=== PATIENT | male | born 1980 | race Caucasian/White ===

== ENCOUNTER 2021-07-13 19:18 | Inpatient (IN) | payer MEDICARE, MEDICAID ==
[~2021-07-13] VITALS: Ht 180.3 cm; Wt 147.9 kg
[2021-07-14 02:09] VITALS: BP 139/96
[2021-07-14] MEDS ORDERED: HALOPERIDOL 5 MG TABLET PO PRN (05:15)
[2021-07-14] MEDS ORDERED: ALBUTEROL SULFATE HFA 90 MCG/PUFF 8 GM INHALER IH PRN ×2 (06:30→06:45)
[2021-07-14] MEDS ORDERED: TraMADol HCL 50 MG TABLET PO PRN (06:30)
[2021-07-14] MEDS ORDERED: DOCUSATE SODIUM 100 MG CAPSULE PO PRN (06:45)
[2021-07-14] MEDS ORDERED: MAGNESIUM HYDROXIDE SUSPENSION 30 ML UDCUP PO PRN (06:45)
[2021-07-14] MEDS ORDERED: LOPERAMIDE HCL 2 MG CAPSULE PO PRN (06:45)
[2021-07-14] MEDS ORDERED: MAG HYDROX/AL HYDROX/SIMETH ES 30 ML SUSPENSION UDCUP PO PRN (06:45)
[2021-07-14] MEDS ORDERED: ONDANSETRON HCL 4 MG TABLET PO PRN (06:45)
[2021-07-14] MEDS ORDERED: ACETAMINOPHEN 325 MG TABLET PO PRN (06:45)
[2021-07-14] MEDS ORDERED: CloNIDine HCL 0.1 MG TABLET PO PRN (06:45)
[2021-07-14] MEDS ORDERED: GuaiFENesin/D-METHORPHAN [SUGAR-FREE] 200-20MG/10 ML SYRUP UDCUP PO PRN (06:45)
[2021-07-14] MEDS ORDERED: PETROLATUM,WHITE 28 GM JELLY TP PRN (06:45)
[2021-07-14] MEDS: LEVOTHYROXINE SODIUM 75 MCG TABLET PO SCH (07:00)
[2021-07-14 09:15] VITALS: BP 144/86
[2021-07-14 16:10] VITALS: BP 138/82
[2021-07-14] MEDS ORDERED: PALIPERIDONE PALMITATE 234 MG/1.5 ML SYRINGE IM ONE (16:15)
[2021-07-14] MEDS: QUEtiapine FUMARATE 25 MG TABLET PO SCH (17:32)
[2021-07-15 02:06] VITALS: BP 144/77
[2021-07-15 03:41] VITALS: BP 144/81
[2021-07-15] MEDS: LORazepam 2 MG TABLET PO PRN (03:44)
[2021-07-15] MEDS: LEVOTHYROXINE SODIUM 75 MCG TABLET PO SCH (06:47)
[2021-07-15 08:11] VITALS: BP 139/80
[2021-07-15] MEDS: QUEtiapine FUMARATE 25 MG TABLET PO SCH ×2 (09:00→15:54)
[2021-07-15 09:01] LABS: BASOPHILS % (AUTO) 0.6 % (0.0-2.0); EOSINOPHILS % (AUTO) 3.1 % (1.0-6.0); HEMATOCRIT 44.9 % (41-53); HEMOGLOBIN 15.3 g/dL (13.5-17.5); LYMPHOCYTES # (AUTO) 3.5 K/uL (1.0-4.8); LYMPHOCYTES % (AUTO) 36.6 % (22.0-44.0); MEAN CORPUSCULAR HGB CONC 34.2 G/dL (31.0-37.0); MEAN CORPUSCULAR VOLUME 85 fL (80-100); MONOCYTES # (AUTO) 0.4 K/uL (0.1-1.0); MONOCYTES % (AUTO) 4.7 % (2.0-9.0); NEUTROPHILS # (AUTO) 5.3 K/uL (1.8-7.7); PLATELET COUNT (AUTO) 365 K/uL (150-450); RED BLOOD CELL COUNT(AUTO) 5.29 MIL/uL (4.50-5.90); RED CELL DISTRIBUTION WIDTH 13.5 % (11.5-14.5)
[2021-07-15 09:18] LABS: ALANINE AMINOTRANSFERASE 71 U/L (12-78); ALBUMIN 3.9 g/dL (3.4-5.0); ALKALINE PHOSPHATASE 50 U/L (46-116); ANION GAP 11 mmol/L (8-16); ASPARTATE AMINOTRANSFERASE 34 U/L (15-37); BILIRUBIN,TOTAL 0.5 mg/dL (0.1-1.0); CALCIUM, TOTAL 9.2 mg/dL (8.8-10.5); CARBON DIOXIDE 26 mmol/L (22-29); CHLORIDE 104 mmol/L (98-107); CREATININE 1.16 mg/dL (0.60-1.30); FREE T4 (FREE THYROXINE) 0.94 ng/dL (0.76-1.46); GLOMERULAR FILTR. RATE CALC > 60 mL/min (>60); GLUCOSE,RANDOM 122 mg/dL (70-110); POTASSIUM 3.7 mmol/L (3.5-5.1); SODIUM SERUM 141 mmol/L (136-145); THYROID STIMULATING HORMONE 2.56 uIU/mL (0.36-3.74); TOTAL PROTEIN, SERUM 7.3 g/dL (6.4-8.2); UREA NITROGEN, BLOOD 15 mg/dL (7-18)
[2021-07-15 17:39] VITALS: BP 123/60
[2021-07-16] MEDS: LEVOTHYROXINE SODIUM 75 MCG TABLET PO SCH (06:12)
[2021-07-16 08:09] VITALS: BP 152/90
[2021-07-16] MEDS: QUEtiapine FUMARATE 25 MG TABLET PO SCH ×2 (08:32→17:02)
[2021-07-17 03:10] VITALS: BP 128/84
[2021-07-17] MEDS: NICOTINE 14 MG/24 HOUR PATCH TD PRN (03:19)
[2021-07-17] MEDS: LEVOTHYROXINE SODIUM 75 MCG TABLET PO SCH (06:33)
[2021-07-17] MEDS: QUEtiapine FUMARATE 25 MG TABLET PO SCH ×2 (08:50→17:07)
[2021-07-17 09:00] VITALS: BP 136/80
[2021-07-17 18:17] VITALS: BP 121/86
[2021-07-18 04:37] VITALS: BP 143/87
[2021-07-18] MEDS: NICOTINE 14 MG/24 HOUR PATCH TD PRN (04:37)
[2021-07-18] MEDS: LEVOTHYROXINE SODIUM 75 MCG TABLET PO SCH (06:10)
[2021-07-18] MEDS: QUEtiapine FUMARATE 25 MG TABLET PO SCH ×2 (08:14→16:10)
[2021-07-18 09:00] VITALS: BP 165/91
[2021-07-18 16:51] VITALS: BP 133/85
[2021-07-19 05:25] VITALS: BP 133/87
[2021-07-19] MEDS: NICOTINE 14 MG/24 HOUR PATCH TD PRN (05:25)
[2021-07-19] MEDS: LEVOTHYROXINE SODIUM 75 MCG TABLET PO SCH (06:10)
[2021-07-19 08:00] VITALS: BP 138/83
[2021-07-19] MEDS: QUEtiapine FUMARATE 25 MG TABLET PO SCH ×2 (08:10→17:09)
[2021-07-19 14:39] VITALS: BP 128/84
[2021-07-19 15:39] VITALS: BP 145/97
[2021-07-19 16:07] VITALS: BP 148/102
[2021-07-19 20:02] LABS: COVID AG,FIA SOURCE NASAL SWAB
[2021-07-20] MEDS: LEVOTHYROXINE SODIUM 75 MCG TABLET PO SCH (06:17)
[2021-07-20 08:10] VITALS: BP 141/73
[2021-07-20] MEDS: QUEtiapine FUMARATE 25 MG TABLET PO SCH ×2 (08:26→16:23)
[2021-07-20 08:37] VITALS: BP 141/73
[2021-07-20] MEDS: IBUPROFEN 400 MG TABLET PO PRN (08:37)
[2021-07-20 17:02] VITALS: BP 150/95
[2021-07-21 00:52] VITALS: BP 134/71
[2021-07-21] MEDS: LEVOTHYROXINE SODIUM 75 MCG TABLET PO SCH (06:58)
[2021-07-21] MEDS: QUEtiapine FUMARATE 25 MG TABLET PO SCH ×2 (08:24→16:30)
[2021-07-21 08:55] VITALS: BP 159/87
[2021-07-21] MEDS: IBUPROFEN 400 MG TABLET PO PRN (08:55)
[2021-07-21 09:07] VITALS: BP 159/87
[2021-07-21] MEDS: NICOTINE 14 MG/24 HOUR PATCH TD PRN (09:46)
[2021-07-21 16:07] VITALS: BP 121/78
[2021-07-21] MEDS: PrednisoLONE ACETATE 1% 5 ML OPHTHALMIC SUSPENSION OD SCH (20:35)
[2021-07-22 03:38] VITALS: BP 133/77
[2021-07-22] MEDS: LEVOTHYROXINE SODIUM 75 MCG TABLET PO SCH (06:01)
[2021-07-22] MEDS: QUEtiapine FUMARATE 25 MG TABLET PO SCH ×2 (08:33→16:21)
[2021-07-22] MEDS: PrednisoLONE ACETATE 1% 5 ML OPHTHALMIC SUSPENSION OD SCH ×4 (08:34→20:47)
[2021-07-22 08:42] VITALS: BP 141/100
[2021-07-22] MEDS: NICOTINE 14 MG/24 HOUR PATCH TD PRN (09:10)
[2021-07-22 09:11] LABS: CHOL/HDL RATIO 4.7 (4.2-7.3)
[2021-07-22] MEDS: LORazepam 2 MG TABLET PO PRN (11:50)
[2021-07-22 16:28] VITALS: BP 124/80
[2021-07-22] MEDS: IBUPROFEN 400 MG TABLET PO PRN (16:28)
[2021-07-22 16:42] VITALS: BP 130/79
[2021-07-22] MEDS: ZOLPIDEM TARTRATE 10 MG TABLET PO PRN (21:10)
[2021-07-23 06:40] VITALS: BP 131/78
[2021-07-23] MEDS: LEVOTHYROXINE SODIUM 75 MCG TABLET PO SCH (06:41)
[2021-07-23 08:02] VITALS: BP 115/62
[2021-07-23] MEDS: PrednisoLONE ACETATE 1% 5 ML OPHTHALMIC SUSPENSION OD SCH ×4 (08:33→20:14)
[2021-07-23] MEDS: QUEtiapine FUMARATE 25 MG TABLET PO SCH ×2 (08:33→16:21)
[2021-07-23] MEDS: NICOTINE 14 MG/24 HOUR PATCH TD PRN (11:11)
[2021-07-23 17:04] VITALS: BP 132/79
[2021-07-23] MEDS: ZOLPIDEM TARTRATE 10 MG TABLET PO PRN (20:15)
[2021-07-24] MEDS: LEVOTHYROXINE SODIUM 75 MCG TABLET PO SCH (06:28)
[2021-07-24 06:50] VITALS: BP 131/78
[2021-07-24 08:00] VITALS: BP 145/85
[2021-07-24 08:34] VITALS: BP 145/85
[2021-07-24] MEDS: QUEtiapine FUMARATE 25 MG TABLET PO SCH ×2 (09:07→16:30)
[2021-07-24] MEDS: PrednisoLONE ACETATE 1% 5 ML OPHTHALMIC SUSPENSION OD SCH ×4 (09:07→21:00)
[2021-07-24 16:13] VITALS: BP 131/75
[2021-07-25] MEDS: LEVOTHYROXINE SODIUM 75 MCG TABLET PO SCH (06:45)
[2021-07-25 08:07] VITALS: BP 115/75
[2021-07-25] MEDS: QUEtiapine FUMARATE 25 MG TABLET PO SCH (08:13)
[2021-07-25] MEDS: PrednisoLONE ACETATE 1% 5 ML OPHTHALMIC SUSPENSION OD SCH ×2 (08:14→12:26)
[2021-07-25] MEDS: LORazepam 2 MG TABLET PO PRN (08:31)
[2021-07-25] MEDS: NICOTINE 14 MG/24 HOUR PATCH TD PRN (09:14)
[2021-07-25 10:51] LABS: COVID AG,FIA SOURCE NASOPHARYNGEAL
[2021-07-25] MEDS ORDERED: QUET25TA36 PO (11:17)
[2021-07-25] MEDS ORDERED: PALI234D IM (11:17)
[2021-07-25] MEDS ORDERED: PRED5DRO25 OD (12:04)
[2021-07-25] MEDS ORDERED: LEVO125T95 PO (12:04)
[2021-08-11] MEDS ORDERED: PALIPERIDONE PALMITATE 234 MG/1.5 ML SYRINGE IM SCH (09:00)
== END 2021-07-25 13:10 | disposition home or self-care (01) | DRG 885 ==
LOC: UNDOADMIN 07-14 01:10 → 3EX 07-14 01:10
PROVIDERS: ADMIT Psychiatry & Neurology Child & Adolescent Psychiatry; ATTEND Psychiatry & Neurology Child & Adolescent Psychiatry
DX: F20.0 Paranoid schizophrenia (principal); Z20.822 Contact with and (suspected) exposure to COVID-19; R73.9 Hyperglycemia, unspecified; R00.0 Tachycardia, unspecified; Z59.00 Homelessness unspecified
CPT/HCPCS: 80053; 80061; 83036; 84436; 84439; 84443; 85025; G0378; J3535